=== PATIENT | female | born 1975 | race American Indian/Alaskan Native ===

== ENCOUNTER 2019-04-14 23:34 | Emergency (ER) | payer OTHER ==
[2019-04-14 23:43] VITALS: BP 166/103
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
== END 2019-04-15 02:20 | disposition left against medical advice (07) ==
LOC: ED 23:34
DX: S29.012A Strain of muscle and tendon of back wall of thorax, initial encounter (principal); R07.9 Chest pain, unspecified; I10 Essential (primary) hypertension; J45.909 Unspecified asthma, uncomplicated; V49.49XA Driver injured in collision with other motor vehicles in traffic accident, initial encounter; Y92.413 State road as the place of occurrence of the external cause; Y93.89 Activity, other specified; Y99.9 Unspecified external cause status
CPT/HCPCS: 93005; 93010; 99282